=== PATIENT | male | born 1965 | race American Indian/Alaskan Native ===

== ENCOUNTER 2017-05-15 22:42 | Observation (INO) | payer BC ==
[2017-05-15] MEDS ORDERED: ASPIRIN 81 MG PO STA (23:00)
[2017-05-15 23:17] LABS: Basophils % (A) 0 %; Eosinophils # (A) 0.2 k/uL (0-0.7); Eosinophils % (A) 3 %; HCT 50.2 % (39.0-53.0); HGB 16.9 gm/dL (13.0-17.5); Lymphocytes % (A) 13 %; MCHC 33.7 g/dL (31.0-37.0); MCV 86.1 fL (80.0-100.0); Mean Platelet Volume 7.9; Monocytes # (A) 0.3 k/uL (0-1.0); Monocytes % (A) 4 %; Neutrophils # (A) 5.8 k/uL (1.3-7.7); Neutrophils % (A) 78 %; Platelet Count 203 k/uL (150-450); RBC 5.82 m/uL (4.30-5.90); RDW 12.8 % (11.5-15.5); WBC 7.5 k/uL (3.8-10.6)
[2017-05-15 23:28] LABS: ALT 62 U/L (21-72); AST 41 U/L (17-59); Albumin 4.1 g/dL (3.5-5.0); Alkaline Phosphatase 88 U/L (38-126); Amylase 43 U/L (30-110); Anion Gap 11 mmol/L; Blood Urea Nitrogen 10 mg/dL (9-20); Calcium 9.7 mg/dL (8.4-10.2); Carbon Dioxide 27 mmol/L (22-30); Chloride 105 mmol/L (98-107); Glucose 113 mg/dL (74-99); Lipase 188 U/L (23-300); Magnesium 1.9 mg/dL (1.6-2.3); Sodium 143 mmol/L (137-145); Total Bilirubin 0.5 mg/dL (0.2-1.3); Total Protein 6.8 g/dL (6.3-8.2)
[2017-05-15 23:32] LABS: D-Dimer 0.56 mg/L FEU (<0.60); Partial Thromboplastin Time 24.7 sec (22.0-30.0); Prothrombin Time 9.8 sec (9.0-12.0)
--- NOTE | 2017-05-15 23:38 | XR ---
EXAMINATION TYPE: XR chest 2V DATE OF EXAM: 05/15/2017 COMPARISON: NONE HISTORY: Chest tightness TECHNIQUE: Frontal and lateral views of the chest are obtained. FINDINGS: Heart and mediastinum are normal. Lungs are clear. Diaphragm is normal. Bony thorax is int act. IMPRESSION: Normal chest
[2017-05-15 23:50] LABS: Creatine Kinase MB 0.9 ng/mL (0.0-2.4); Troponin I 0.019 ng/mL (0.000-0.034)
[2017-05-16] MEDS ORDERED: NITROGLYCERIN SL TABS 0.4 MG TAB SUBLINGUAL PRN (00:35)
[2017-05-16] MEDS ORDERED: HEPARIN SODIUM,PORCINE 5,000 UNIT/ML 1 ML VIAL IV ONE (00:35)
--- NOTE | 2017-05-16 00:35 | ED ---
Chest Pain HPI - General Chief Complaint: Chest Pain Stated Complaint: Chest Pains Time Seen by Provider: 05/15/17 22:53 Source: patient, RN notes reviewed Mode of arrival: wheelchair Limitations: no limitations - History of Present Illness Initial Comments: This is a 52-year-old male with no prior history of heart disease who states he had the onset of retrosternal chest discomfort while he was walking tonight. He was pressure-like midsternal pain 78/10 severity. He states it last about 10 minutes after he stopped walking. Additionally he states he had several episodes of last week while shoveling snow I repeated episodes of chest discomfort with any kind of exertion. He currently is pain-free denies any fevers chills nausea vomiting sweats at this time. He is a nonsmoker. MD Complaint: chest pain - Related Data Home Medications Medication Instructions Recorded Confirmed Fexofenadine HCl [Tiesha Allergy] 180 mg PO DAILY PRN 05/15/17 05/15/17 Simvastatin [Zocor] 20 mg PO HS 05/15/17 05/15/17 metFORMIN HCL [Glucophage] 850 mg PO BID 05/15/17 05/15/17 Allergies Allergy/AdvReac Type Severity Reaction Status Date / Time No Known Allergies Allergy Verified 05/15/17 23:16 Review of Systems ROS Statement: Those systems with pertinent positive or pertinent negative responses have been documented in the HPI. ROS Other: All systems not noted in ROS Statement are negative. EKG Findings - EKG Results: EKG: interpreted by SONIA, sinus rhythm (Sinus tachycardia rate of 114. We'll 150 QRS duration 12 QT since QTC of 324/446 evidence of a right word axis.) Past Medical History Past Medical History: Diabetes Mellitus History of Any Multi-Drug Resistant Organisms: None Reported Past Surgical History: No Surgical Hx Reported Past Psychological History: Anxiety Smoking Status: Never smoker Past Alcohol Use History: None Reported Past Drug Use History: None Reported General Exam - General Exam Comments Initial Comments: This is a well-developed well-nourished awake alert oriented times 3 male Limitations: no limitations General appearance: alert, in no apparent distress Head exam: Present: atraumatic, normocephalic, normal inspection Eye exam: Present: normal appearance, PERRL, EOMI. Absent: scleral icterus, conjunctival injection, periorbital swelling ENT exam: Present: normal exam, mucous membranes moist Neck exam: Present: normal inspection. Absent: tenderness, meningismus, lymphadenopathy Respiratory exam: Present: normal lung sounds bilaterally. Absent: respiratory distress, wheezes, rales, rhonchi, stridor Cardiovascular Exam: Present: regular rate, normal rhythm, normal heart sounds. Absent: systolic murmur, diastolic murmur, rubs, gallop, clicks GI/Abdominal exam: Present: soft, normal bowel sounds. Absent: distended, tenderness, guarding, rebound, rigid Extremities exam: Present: normal inspection, full ROM, normal capillary refill. Absent: tenderness, pedal edema, joint swelling, calf tenderness Back exam: Present: normal inspection Neurological exam: Present: alert, oriented X3, CN II-XII intact Psychiatric exam: Present: normal affect, normal mood Skin exam: Present: warm, dry, intact, normal color. Absent: rash Course Vital Signs 05/15/17 22:46 Temperature 98.6 F Pulse Rate 124 H Respiratory 18 Rate Blood Pressure 140/89 O2 Sat by Pulse 98 Oximetry Chest Pain MDM - MDM Imaging was reviewed no acute findings labs are unremarkable at this time. Patient's history is consistent with new onset unstable angina. He will be admitted I did discuss case with Dr. Muse Disposition Clinical Impression: Unstable angina pectoris Disposition: ADMITTED IP TO THIS [facility] Condition: Stable Referrals: Nonstaff,Physician [Primary Care Provider] - 1-2 days
[2017-05-16] MEDS ORDERED: LORATADINE 10 MG TAB PO PRN (00:38)
[2017-05-16] MEDS ORDERED: HEPARIN SOD,PORK IN 0.45% NACL 25,000 UNIT in 0.45% NACL 1 500ML.BAG IV SCH (00:45)
[2017-05-16] MEDS ORDERED: SODIUM CHLORIDE 0.9% 1,000 ML IV SCH (00:45)
[2017-05-16] MEDS ORDERED: HEPARIN SODIUM,PORCINE 5,000 UNIT/ML 1 ML VIAL IV PRN (01:27)
[2017-05-16 01:28] VITALS: RESP 16
[2017-05-16 06:32] LABS: Creatine Kinase MB 0.8 ng/mL (0.0-2.4); Troponin I 0.02 ng/mL (0.000-0.034)
[2017-05-16 07:08] LABS: Glucose,Whole Blood 130 mg/dL (75-99)
[2017-05-16] MEDS ORDERED: metFORMIN 850 MG TAB PO SCH (09:00)
[2017-05-16] MEDS ORDERED: METOPROLOL TARTRATE 12.5 MG TAB PO SCH (09:30)
[2017-05-16] MEDS ORDERED: ASPIRIN 81 MG PO SCH (09:30)
[2017-05-16] MEDS ORDERED: METOPROLOL TARTRATE 25 MG TAB PO SCH (09:30)
--- NOTE | 2017-05-16 10:41 | CONS ---
CONSULTATION Myron Gomez is a gentleman who is obese, has history of type 2 diabetes and also mild hyperlipidemia and sees a entry manager in the [facility]. He usually walks about an hour a day and has been quite vigorous with his exercise until 2 months ago, but because the weather became cooler he stopped doing this. He went to [place] somewhere near [facility], to visit his sister and did some walking yesterday. After 10 minutes of brisk walking, he experienced some chest tightness and pressure, came back to the car and sat down. The symptoms resolved and he came into the hospital here today. He has not had any recurrence of pain. He is resting comfortably at the time of my evaluation. His two sets of troponins are normal and EKG is unremarkable. Apparently in July or August of 2015, which is less than two years ago, he had a stress test which was normal; this was performed through his entry manager in the [facility]. He is resting comfortably without symptoms. PAST MEDICAL HISTORY: 1. Hyperlipidemia. 2. Type 2 diabetes. 3. Obesity. 4. Normal stress test per patient about 20 months ago. HOME MEDICATIONS: 1. Metformin 850 mg b.i.d. 2. Zocor 20 mg daily. 3. Tiesha p.r.n. ALLERGIES: NONE. REVIEW OF SYSTEMS: Unremarkable other than above-mentioned facts. PHYSICAL EXAMINATION: Blood pressure is 128/70. Pulse rate is about 86 per minute, regular. HEENT: Unremarkable. Fundus was not examined by me. NECK: Supple. No JVD. I do not hear a carotid bruit. There is no thyromegaly. Heart exam reveals S1, S2 heard normally without a rub, murmur or gallop. Lungs are clear. ABDOMEN: Soft, nontender. Lower extremities reveal normal pulses. No edema. Central nervous system is normal. EKG reveals sinus mechanism, no acute changes. LABORATORY DATA: Laboratory data revealed two sets of troponins that are normal. This patient also complains of some palpitations and tachycardia from time to time. Rare PVCs were noted on the monitor. IMPRESSION: 1. Chest pain syndrome. We cannot exclude this being angina pectoris occurring with activity. No rest pain. 2. Type 2 diabetes mellitus. 3. Obesity. 4. Hyperlipidemia. RECOMMENDATIONS: This patient wishes to have his care in the [facility]. I am going to start him on aspirin 81 mg daily and metoprolol tartrate 25 mg daily. We will give these medications today, increase activity, and if he has no further symptoms and if the third troponin is normal, he can be discharged. Patient has promised to call and see his entry manager within a week so that he can have further workup in the form of a stress test. However, if he has pain while we increase activity here in the hospital, I will perform coronary angiography. This was explained in great detail to the patient. We will discontinue heparin, increase activity, check additional troponin and possibly discharge him if he has no further symptoms on aspirin and beta blockers. Patient is already on a statin agent. Thank you very much for the consult. ASUNCION / IJN: [id number] /
[2017-05-16 10:48] LABS: T4, Free (Free Thyroxine) 1.66 ng/dL (0.78-2.19)
[2017-05-16] MEDS: INSULIN ASPART 100 UNIT/ML 1 ML 10 ML VIAL SQ SCH ×2 (10:49→14:35)
[2017-05-16 12:10] LABS: Glucose,Whole Blood 123 mg/dL (75-99)
[2017-05-16 12:47] LABS: Creatine Kinase 53 U/L (55-170)
[2017-05-16 12:50] VITALS: BP 110/64; PULSE 80; TEMP 98.2
[2017-05-16 13:00] LABS: Creatine Kinase MB 0.6 ng/mL (0.0-2.4); Troponin I <0.012 ng/mL (0.000-0.034)
--- NOTE | 2017-05-16 14:41 | DS ---
DISCHARGE SUMMARY CHIEF COMPLAINT: Chest pain. HISTORY OF PRESENT ILLNESS AND PHYSICAL EXAM: Details of this man's history and physical can be found in the initial workup. LABORATORY STUDIES: While he was in a hospital, he had laboratory studies, details of which can be found in the laboratory section of his chart. COURSE IN HOSPITAL: After admission, he was placed on bedrest, started on intravenous fluids and had serial EKGs and enzymes and they were normal. He was seen by Cardiology. It was felt that he could be released and he will follow up with his own physician. FINAL DIAGNOSES: 1. Chest pain, noncardiac. 2. Hyperlipidemia. 3. Type 2 non-insulin dependent diabetes mellitus. 4. Family history of heart disease. OPERATIONS: None. CONSULTATIONS: Cardiology. He is improved. MMJAKE / KIMBERLI: [id number] /
--- NOTE | 2017-05-16 14:47 | HP ---
HISTORY AND PHYSICAL CHIEF COMPLAINT: Chest pain. HISTORY OF PRESENT ILLNESS: This is the first known admission for this 52-year-old white male who is slightly overweight. He notes some tightness in his chest which came and went while he was walking. Then it got a little bit worse and that was discussed with a friend who thought he should go to the hospital. He presented to the emergency room where studies were negative, but he was admitted for observation. He describes this as a tight feeling in the chest, but he had no shortness of breath, diaphoresis, nausea, radiation of the discomfort, etc. He has had a recent URI. He also has a problem with reflux. He is diabetic. He does not smoke. REVIEW OF SYSTEMS: He has had no neurologic problems, difficulty with vision or hearing, hemoptysis, murmurs, fever, orthopnea, PND, history of heart disease, abdominal pain, vomiting, diarrhea, melena, hematochezia, jaundice, hepatitis, cirrhosis, hematuria, frequency, urgency, obstructive uropathy, renal failure, etc. He is diabetic. PAST MEDICAL HISTORY: Past medical history, family history and personal and social history reveals he is not allergic to any medication. He has had no surgery. MEDICATIONS: He is on simvastatin and metformin. He does have a positive family history of heart disease on both sides. He works for the [employer]. PHYSICAL EXAMINATION: Blood pressure is 140/86 with a pulse of 69, respirations of 15. He is afebrile. GENERAL: He appeared to be well developed, well nourished, no acute distress. Skin color is normal. Skin is warm, dry. Lymph nodes not enlarged. Head, ears, eyes, nose, mouth, and throat were normal. Neck veins not distended. Thyroid not enlarged. Chest is clear. Cardiac exam is normal. Abdomen is soft, nontender. The extremities normal. IMPRESSION: Chest pain with family history, hyperlipidemia and type 2 non insulin dependent diabetes mellitus. PLAN: 1. Bed rest. 2. IV fluids. 3. Nasal O2. 4. Serial cardiac enzymes. 5. Cardiology consult. ASUNCION / KIMBERLI: [id number] /
[2017-05-16] MEDS ORDERED: ATORVASTATIN 10 MG TAB PO SCH (21:00)
[2017-05-17] MEDS ORDERED: ASPIRIN 325 MG TAB PO SCH (09:00)
== END 2017-05-16 15:20 | disposition home or self-care (01) ==
LOC: EC 22:42 → 3OBS 05-16 00:35
PROVIDERS: ADMIT Family Medicine; ATTEND Family Medicine
DX: R07.89 Other chest pain (principal); E11.9 Type 2 diabetes mellitus without complications; E78.5 Hyperlipidemia, unspecified; K21.9 Gastro-esophageal reflux disease without esophagitis; F41.9 Anxiety disorder, unspecified; E66.9 Obesity, unspecified; Z79.84 Long term (current) use of oral hypoglycemic drugs; Z79.899 Other long term (current) drug therapy; Z82.49 Family history of ischemic heart disease and other diseases of the circulatory system
CPT/HCPCS: 99285 ×2; 96365 ×2; 96376 ×3; 36415; 93005; 85379; 84439; 83880; 80053; 82150; 82550 ×2; 82553 ×2; 83690; 83735; 84443; 84484 ×2; 85025; 85610; 85730 ×2; 71046; G0378; J1644 ×2